=== PATIENT | female | born 1990 | race African-American/Black ===

== ENCOUNTER 2017-09-02 22:50 | Emergency (ER) | payer OTHER ==
[2017-09-02 22:58] VITALS: BP 150/78; PULSE 78; TEMP 98; BMI 25.0
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
== END 2017-09-03 02:57 | disposition home or self-care (01) ==
LOC: JER 22:50
DX: O26.892 Other specified pregnancy related conditions, second trimester (principal); S02.2XXA Fracture of nasal bones, initial encounter for closed fracture; S00.11XA Contusion of right eyelid and periocular area, initial encounter; Y04.2XXA Assault by strike against or bumped into by another person, initial encounter; Y93.89 Activity, other specified; Y92.038 Other place in apartment as the place of occurrence of the external cause; Y99.8 Other external cause status; Y07.01 Husband, perpetrator of maltreatment and neglect; Z3A.14 14 weeks gestation of pregnancy
CPT/HCPCS: 76801-TC; 99282-25